=== PATIENT | female | born 1935 | race Caucasian/White ===

== ENCOUNTER 2019-11-20 19:15 | Inpatient (IN) | payer OTHER, MEDICARE ==
[~2019-11-20] VITALS: Ht 149.9 cm; Wt 61.2 kg
[2019-11-20 19:45] VITALS: BP 176/74
[2019-11-20 21:05] LABS: ANION GAP 12 mmol/L (7-16); BUN 15 mg/dL (7-18); CALCIUM 9.7 mg/dL (8.5-10.1); CHLORIDE 101 mmol/L (98-107); CO2 23 mmol/L (21-32); CREATININE 0.7 mg/dL (0.6-1.0); GLUCOSE 136 mg/dL (74-106); POTASSIUM 5.1 mmol/L (3.5-5.1); SODIUM 136 mmol/L (136-145)
[2019-11-20 21:09] LABS: ABSOLUTE NEUTROPHILS 13.8 thou/uL (1.4-8.2); BASOPHILS 0.2 % (0.0-2.0); EOSINOPHILS 0.1 % (0.0-3.0); HEMATOCRIT 43.7 % (37.0-47.0); LYMPHOCYTES 4.4 % (24.0-44.0); MCH 28.1 pg (26.0-34.0); MCHC 32.1 g/dL (28.0-37.0); MCV 87.4 fL (80.0-100.0); MONOCYTES 4.9 % (1.0-8.0); PLATELET COUNT 405 thou/uL (150-400); POLYS 90.4 % (36.0-66.0); RBC 4.99 mil/uL (4.20-5.00); RDW 14.4 % (10.5-14.5); WBC 15.3 thou/uL (4.0-11.0)
[2019-11-20 21:15] LABS: ALBUMIN 3.9 g/dL (3.4-5.0); LIPASE 51 U/L (73-393); SGOT 39 U/L (15-37); SGPT 23 U/L (30-65); TOTAL BILIRUBIN 0.7 mg/dL (<0.1-1.0); TOTAL PROTEIN 8.2 g/dL (6.4-8.2); TROPONIN-I <0.06 ng/mL (<0.06)
[2019-11-20 21:52] LABS: URINE BILIRUBIN NEGATIVE (Negative); URINE BLOOD 3+ (Negative); URINE CLARITY CLEAR; URINE COLOR YELLOW; URINE GLUCOSE-RANDOM* NEGATIVE (Negative); URINE KETONES 2+ (Negative); URINE NITRITE-REFLEX NEGATIVE (Negative); URINE PROTEIN (DIPSTICK) NEGATIVE (Negative); URINE UROBILINOGEN 0.2 E.U./dl (0.2-1.0)
[2019-11-20 21:54] LABS: URINE LEUKOCYTES-REFLEX 1+ (Negative)
[2019-11-20 22:03] LABS: BACTERIA-REFLEX 1-9 Few /HPF (None Seen); CASTS None Seen /LPF (None Seen); CRYSTALS None Seen /LPF (None Seen); SQUAMOUS 0-3 Few /LPF (0-3); URINE WBC-REFLEX 0-5 Rare /HPF (0-5)
[2019-11-20 22:32] VITALS: BP 176/74
[2019-11-20 23:03] VITALS: BP 155/88
[2019-11-21] MEDS ORDERED: TUMS PO (03:36)
[2019-11-21] MEDS ORDERED: REFRESH PLUS1 EACH OPHTHALMIC (03:39)
[2019-11-21] MEDS ORDERED: IBUPROFEN200 M1 PO (03:43)
[2019-11-21] MEDS ORDERED: TYLENOL ARTHRI650 MG PO (03:45)
[2019-11-21] MEDS ORDERED: BUSPIRONE HCL5 MG PO (03:46)
[2019-11-21] MEDS ORDERED: LORAZEPAM 0.50.5 MG PO (03:48)
--- NOTE | 2019-11-21 04:14 | NUR ---
Pt arrived from ED at 2330 via cart accompanied by staff. Oriented to the room/unit. A/OX4. Denied pain on assessment, VSS. Up with AX1/RW to BSC. Pt c/o nausea w/o emesis medicated per EMAR with some relief reported. Pt reports she doesn't take any meds at home even though she brought a list of meds with her, Amna FISH BONING MACHINE FEEDER notified and ok with ordering some of those meds. Pt is restless/anxious states can't get comfortable ativan 0.5mg X1 ordered and administered at this time,will monitor for effectiveness. Fall precautions in place;pt reminded to call for help before getting OOB nad verbalizes understanding. Resting quietly at this time will continue to monitor pt.
[2019-11-21 05:54] LABS: HEMATOCRIT 41.6 % (37.0-47.0); HEMOGLOBIN 13.4 gm/dL (12.0-15.0); MCH 28.5 pg (26.0-34.0); MCHC 32.3 g/dL (28.0-37.0); MCV 88.1 fL (80.0-100.0); RBC 4.72 mil/uL (4.20-5.00); RDW 14.4 % (10.5-14.5); WBC 11.6 thou/uL (4.0-11.0)
[2019-11-21 05:59] LABS: CALCIUM 9.3 mg/dL (8.5-10.1); CREATININE 0.9 mg/dL (0.6-1.0)
[2019-11-21 06:08] LABS: POTASSIUM 3.7 mmol/L (3.5-5.1)
[2019-11-21 09:22] VITALS: BP 107/67
--- NOTE | 2019-11-21 09:57 | NUR ---
ASSUMED CARE THIS AM. PT IS EXPERIENCING NAUSEA BUT NOT VOMITING AT THIS TIME. NURSE GAVE ZOFRAN IV PRN. PT HAS CLEAR LIQUID DIET, ONLY ABLE TO TOLERATE JELLO AT THIS TIME. PT VSS, AOX4, UP WITH STANDBY ASSIST. PT HAS CALL LIGHT IN REACH/PERSONAL BELONGING. WILL CONTINUE TO MONITOR.
--- NOTE | 2019-11-21 14:00 | NUR ---
INITIAL ASSESSMENT: Received consult. VINNY reviewed chart and spoke with nursing and attending physician. Pt was admitted from home due to nausea/vomiting/UTI/dehydration. VINNY met with pt's friend, Simran. Per Simran, pt lives alone in an apt. Pt does not have any immediate family in the local area. Pt is unable to give herself a bath, due to not being able to get in and out of the bathtab. Pt's apt is cluttered. Pt's friends have discussed pt moving into an assisted living facility or getting help in her apt. VINNY provided [employer] and SNF/Assisted Living lists for Simran to review with pt and their friends. VINNY also provided Simran with Advanced Directive booklet for review. VINNY met with pt at bedside. Introduced role of VINNY. Pt is alert/orientated x 4. Pt reports she lives alone at home. Pt has one step to enter the back door of the apt complex, and then has elevator access. Pt states she has a cane and walker to use. No hx of services or post-acute placement. Pt's PCP is Dr. Radha Payne at [facility] Therapy ordered to evaluate pt. VINNY discussed post-acute placement. Pt is agreeable. SW is following to assist as needed with discharge planning.
[2019-11-21 19:08] VITALS: BP 149/76
--- NOTE | 2019-11-21 20:26 | NUR ---
At shift change rounding pt's IV noted to be infiltrated,day nurse indicated she hadn't noticed it. Pt's IV stopped,Edema 3-4+ on arm. IV team came to start an IV on her but unable to d/t swelling attempted X2. Arm elevated on a pillow and wrapped in a warm blanket. Kisha SKIVER MACHINE notified about status;ordered PO Cipro X1,would like IV attempted to be restarted in AM a she needs to be on IV abts for bettter results. Strength And Conditioning Coach Jory updated as well. Will continue to monitor pt.
[2019-11-22 07:18] VITALS: BP 152/74
[2019-11-22 15:00] VITALS: BP 166/72
--- NOTE | 2019-11-22 15:18 | NUR ---
VINNY reviewed chart and spoke with nursing and attending physician. Pt is progressing towards goals. Recommendation for pt to go to a SNF. Discharge is anticipated for tomorrow. VINNY met with pt at bedside to discuss post-acute placement. Pt asked SW to cmome back at a later time. VINNY placed call to pt's friend, Simran. Simran states that pt's friends have discussed SNF placement with pt, but she has not been willing to make a decision. Pt's friend, Simran, will be at [facility] tomorrow morning to discuss with pt. VINNY is following to assist as needed with discharge planning.
--- NOTE | 2019-11-22 18:53 | NUR ---
PATIENT ALERT AND OREIENTED AND SITTING IN CHAIR MOST OF THE DAY AND ABLE TO WALK SEVERAL TIMES WITH PT AROUNG NURSING UNIT. FRIENDS AT BEDSIDE DURING MIDDLE OF THE DAY. IV TEAM PLACED IV AND ABX GIVEN PER IV.
[2019-11-22 20:24] VITALS: BP 130/71
--- NOTE | 2019-11-23 04:49 | NUR ---
Assumed pt care at 1900. Pt is A/OX4,pleasant. VSS.Denies pain on assessment or N/V,having BM's although it takes a while before she does prune juice offered at but she declined. Up with AX1,GB/RW to BSC w/o difficulties. Continent of B&B. Fall precautions in place,calls appropriately will continue to monitor pt.
--- NOTE | 2019-11-23 09:26 | NUR ---
DISCHARGE PLANNING. POST ACUTE RECOMMENDED AT DISCHARGE. PATIENT REFERRAL FAXED TO [facility]. CALL PLACED TO [facility] ANTHONY ADMISSIONS. GABRIELLE TO REVIEW AND NOTIFY IS CP CAN ACCEPT CLINICALLY. PATIENT REFERRAL FAXED TO [facility]. CALL PLACED TO [facility] ADMISSIONS. LUDIVINA TO REVIEW AND NOTIFY. FOLLOWING.
--- NOTE | 2019-11-23 10:11 | NUR ---
SW reviewed chart and spoke with nursing and attending physician. Pt is progressing towards goals for discharge. [facility] VINNY spoke with Yanet at [facility], who states they do not currenty have female skilled beds available. SW met with pt and friend, Simran, at bedside to provide update. Pt states she would prefer to stay closer to [facility], and does not want to consider [facility]. Pt's friend that she has not heard good feedback regarding [facility]. Pt interested in [facility] and [facility]. Pt and Simran to review DPOA documentation. enterprise resource planner to fax to [facility] [facility] [place] for review. SW is following to assist as needed with discharge planning.
[2019-11-23] MEDS ORDERED: PEPCID20 MG PO (12:34)
[2019-11-23] MEDS ORDERED: MIRALAX17 GM PO (12:34)
[2019-11-23] MEDS ORDERED: CIPRO500 M1 PO (12:36)
--- NOTE | 2019-11-23 21:25 | NUR ---
PATIENT ALERT AND ORIENTED AND DISCHARGED IN STABLE CONDITION TO [facility] WITH DISCHARGE INSTRUCTIONS, CHART COPY WITH ALL PERSONAL BELONGINGS. REPORT CALLED TO KARL CONKLIN.
--- NOTE | 2019-11-29 12:31 | EKG ---
[facility] [place] [address] ELECTROCARDIOGRAM REPORT Name: LINETTE JACKSON Room #: [facility] M.R.#: [id number] Admission: 11/20/19 Attend Phys: Duane Nicholas MD Discharge: 11/23/19 Date of : 35 Report #: [id number] THIS REPORT FOR: cc: Radha Payne MD, Sandra L. MD Lundgren,Akil Staton MD [facility] ~ THIS REPORT FOR: //name// [facility] ED Test Date: 2019-11-20 Test Time: 19:53:09 Pat Name: LINETTE JACKSON Department: Room: [facility] Gender: F Missionary Coordinator: SUZI : 1935 Requested By: Anneliese Leyva Order Number: [id number] MD: Akil Batista Measurements Intervals [place] Rate: 97 P: 33 VA: 178 QRS: -36 QRSD: 100 T: 6 QT: 366 QTc: 465 Interpretive Statements Sinus rhythm Left ventricular hypertrophy Compared to ECG 10/21/2007 10:41:00 Left ventricular hypertrophy now present Electronically Signed On 11-21-2019 9:19:42 TELECASTING ENGINEER by Akil Batista [email or web address] <ELECTRONICALLY SIGNED> By: Akil Batista MD, [facility] 11/21/19918 52 52 Akil Batista MD, [facility] /EPI
== END 2019-11-23 16:00 | DRG 872 ==
LOC: ER 19:15 → 4N 22:12 → EROBS 22:12 → 4N 23:07
PROVIDERS: Nurse Practitioner Family; ADMIT Hospitalist
DX: A41.9 Sepsis, unspecified organism (principal); N39.0 Urinary tract infection, site not specified; M19.90 Unspecified osteoarthritis, unspecified site; K59.00 Constipation, unspecified; R31.9 Hematuria, unspecified; K21.9 Gastro-esophageal reflux disease without esophagitis; F41.9 Anxiety disorder, unspecified; G47.00 Insomnia, unspecified; E86.0 Dehydration; Z88.1 Allergy status to other antibiotic agents; Z88.2 Allergy status to sulfonamides; Z88.8 Allergy status to other drugs, medicaments and biological substances; Z79.899 Other long term (current) drug therapy
CPT/HCPCS: 10790